=== PATIENT | male | born 1980 | race Caucasian/White ===

== ENCOUNTER 2018-08-18 08:50 | Emergency (ER) | payer OTHER, SELFPAY ==
[2018-08-18 08:59] VITALS: BP 151/94; PULSE 105; RESP 16; TEMP 36.6; O2SAT 98
[2018-08-18 09:00] VITALS: BP 151/94; PULSE 105; PULSE 98; RESP 16; TEMP 36.6; O2SAT 98; BMI 29.0
--- NOTE | 2018-08-18 09:15 | ED.TRAUMA ---
HPI - Trauma General Chief Complaint: Extremity Injury, Upper Stated Complaint: twisted pinky and ring finger in conveyor at work Time Seen by Provider: 08/18/18 09:14 Source: patient Mode of arrival: ambulatory Limitations: no limitations History of Present Illness HPI narrative: This is a 38-year-old male comes to the emergency department with complaint of injury to both hands. Patient states he was at work. He works at [employer]. He was working on a conveyor belt with a wrench when the wrench was caught up with the conveyor belt caught his left finger and pulled his left hand through the rosalba. He states his 4th and 5th fingers with through particularly the 5th. He grabbed a piece of the rubber and hold it with his right hand causing some friction and burning to that hand but that hand did not get hold through the conveyor belt. Patient states he was able to extract his hands. He states they feel very warm. He has quite a bit of pain when he tries to flex his 4th and 5th fingers. Particularly his 5th finger. There is some abrasion to the skin. And some black discoloration likely from the conveyer belt itself. Patient has sensation but states it feels decreased in the 5th finger. He states his tetanus is up-to-date. He denies any other past medical issues. He had a hernia repair on the right inguinal in 2005. He denies any allergies to medications. He denies any other injuries. Related Data Previous Rx's Medication Instructions Recorded tramadol [Ultram] 50 mg PO Q6H PRN #10 tab 08/18/18 Allergies Allergy/AdvReac Type Severity Reaction Status Date / Time No Known Drug Allergies Allergy Verified 08/18/18 09:19 Review of Systems Review of Systems ROS Unobtainable: All systems reviewed & are unremarkable except as noted in HPI and below Constitutional Denies weakness Musculoskeletal Reports as per HPI, Denies deformity, Reports limited range of motion, Reports tingling (decreased sensation 5th finger) and Reports other (pain 4/5th fingers.) Integumentary/Breasts Reports as per HPI, Reports skin pain and Reports wounds Neurologic Denies focal weakness, Reports tingling (decreased sensation 5th finger) and Denies weakness [facility] Surgical History (Updated 08/18/18 @ 09:21 by Adalgisa Garcia DO) H/O inguinal hernia repair (Chronic) Exam Narrative Exam Narrative: GEN: Patient appears in mild distress. HEAD: No evidence of trauma, no raccoon/Calvo sign. NECK: Painless range of motion, trachea midline EYES:EOMI ENT: External inspection normal, trachea is midline, airway is normal and with normal occlusion. RESP: Chest is nontender and has symmetric movement, no ecchymosis, breath sounds are normal no crackles, wheezes or rales CVS: Heart sounds are normal, no murmur noted, No JVD. ABG/GI: Nontender, soft, normal bowel sounds, no distention, no organomegaly. NEURO: Oriented AOx3, neuro is grossly intact, sensation and motor is normal all 4 extremities moving, cranial nerves II through XII are intact, GCS is 15 PSYCH: Normal mood and affect SKIN: see below, warm and dry, no crepitus and without decubitus BACK: No CVA tenderness, no vertebral tenderness, no step-off's, no crepitus EXT: On right hand patient has some very mild abrasions across the palm and fingers with some blackish discoloration that appears likely secondary to a conveyor belt itself and not necrosis or damage. There is some erythema as well. Patient has full range of motion and no bony tenderness to the hand with sensation and cap refill in all fingers. The left hand patient has similar abrasion in the home as well as blackish discoloration which is also consistent with the conveyor belt itself. He does have some abrasion over the finger as well as superficial avulsion the top layer of skin about skilled nursing around the dorsum of the 5th finger small portion the 4th finger. All patient has pain with palpation over those 2 fingers. He is able to flex partially but has pain in the proximal fingers. Patient's ring was on the 4th finger, this was removed by nursing quickly. Patient's cap refill is less than 5 seconds in all 5 fingers. He has sensation in all 5 fingers but states feels decreased in the left. He does have sensation to light touch. normal color and temperature, no pallor or cyanosis of fingers, normal range of motion of extremities with normal tendon exam except for 4/5th fingers on left hand. Patient is able to flex some but is uncomfortable, he is able to fully extend both fingers,2 + pulse bilateral wrists. Initial Vital Signs Initial Vital Signs: Vital Signs Temperature 97.9 F 08/18/18 08:59 Pulse Rate 105 H 08/18/18 08:59 Respiratory Rate 16 08/18/18 08:59 Blood Pressure 151/94 H 08/18/18 08:59 Pulse Oximetry 98 08/18/18 08:59 Scores GCS [place] coma scale eye opening: Spontaneous [place] coma scale verbal response: Orientated [place] coma scale motor response: Obey commands [place] coma scale total score: 15 Course Orders Ordered: Discontinued Medications Hydrocodone Bitart/Acetaminophen ([place] 5/325) 1 tab PO NOW ONE Stop: 08/18/18 09:16 Last Admin: 08/18/18 09:25 Dose: 1 tab Vital Signs - 8 hr 08/18/18 08:59 08/18/18 09:00 08/18/18 10:28 Temperature 97.9 F 97.9 F Pulse Rate 105 H 105 H 68 Pulse Rate [Left Radial] 98 H Respiratory Rate 16 16 12 Blood Pressure 151/94 H 148/65 H Blood Pressure [Right Arm] 151/94 H Pulse Oximetry 98 98 99 MDM - Trauma Imaging Data hand xray left: Radiologist's impression: Jose Preciado 38 M 1980 [place] [address] XRay Report Signed Patient: Jose Preciado [facility]#: [id number] : 1980Acct:[id number] Age/Sex: 38 / MDate of Service: 08/18/18 Loc: ED Accession Number: [id number] Procedure: XR hand LT min 3V Ordering Provider: Adalgisa Garcia D.O. PROCEDURE: XR HAND LT MIN 3V INDICATIONS: pain, especially 5th finger, went thru rosalba/conveyer belt TECHNIQUE: 3 views of the hand(s) acquired. COMPARISON: None. FINDINGS: Bones: No fractures or dislocations. Carpal bones are normally aligned. No suspicious bony lesions. Soft tissues: No suspicious soft tissue calcifications. IMPRESSION: No fracture. No osseous lesion. If symptoms and/or clinical suspicion for pathology persists, further assessment with repeat radiographs (7-10 days) or advanced imaging (e.g. CT, MRI or bone scan) may be helpful. Dictated by: Rosette Guerra MD, PhD on 08/18/2018 at 9:42 Approved by: Rosette Guerra MD, PhD on 08/18/2018 at 9:43 [facility] Narrative Medical decision making narrative: The patient has some mild abrasion friction pelaez on his right hand. On his left hand x-ray does not show any fracture. He has swelling but no signs of compartment syndrome in his fingers or hand. He does have some abrasion/friction pelaez on the left palm and some superficial abrasions with the top layer of skin removed. Discussed basic wound care. At this time I would not start him on antibiotics but would have him use some topical Neosporin type medication to the open areas. Light dressings that are non constrictive. His ring was removed the ring cutter by nursing when he initially arrived to the ER. Patient has a little bit of decreased sensation in the distal finger but can feel light touch on the 5th digit. He also has quite a bit of pain with flexion. Plan for follow-up with Hand or orthopedic surgery. His employer states that they can help set him up with an appointment but was also given a referral through the ER. Discharge Plan Departure Patient Disposition: Home Clinical Impression: Abrasion or friction burn of hand without infection Contusion of finger of left hand Qualifiers: Encounter type: initial encounter Finger: little finger Damage to nail status: without damage Qualified Code(s): S60.052A - Contusion of left little finger without damage to nail, initial encounter Discharge Date/Time: 08/18/18 10:29 Interventions: ED Discharge Assessment Last Done: 08/18/18 10:28 Instructions: How to Take Care of a Burn Activity Restrictions/Additional Instructions: Follow-up with your provider/L and I provider in the next 3-5 days for recheck. You may also take ibuprofen with this medication you may take up to 800 mg every 8 hours as needed. You may also take Tylenol up to 1000 mg every 8 hours as needed. He may take Ultram for breakthrough pain, you may take 1-2 tablets every 6 hours as needed. This medication can make you sleepy so do not drive, perform hazards activities or make any major decisions while taking it. Wound Care: Keep wound(s) clean and dry. Wash daily with soap and water only. Do not use over the counter products (alcohol or peroxide)on the wounds unless instructed by a physician, I would recommend using topical triple antibiotic ointment such as Neosporin to the open area is 2-3 times daily. If wound condition worsens (increased/expanding redness, developing fluid blisters, or worsening pain), either contact your doctor for an urgent re-assessment , or return to the Emergency Department. Return to the Emergency Department for any new or worsening symptoms. Return if fever greater than 100.4 Fahrenheit, increased swelling, increasing pain or worsening symptoms such as increased discharge or spreading redness. and if you are having inability to move, bend your fingers, loss of sensation, pallor or cyanosis, rapidly worsening pain or other new or concerning symptoms. Prescriptions: New tramadol [Ultram] 50 mg tablet 50 mg PO Q6H PRN (Reason: pain) Qty: 10 RF: 0 Referrals: Adama Borjas MD [Physician] - Stand Alone Forms: Work Release Note
[2018-08-18] MEDS: HYDROCODONE/ACET 5/325 TABLET 1 TAB PO (09:25)
--- NOTE | 2018-08-18 09:28 | ED_ITS ---
HPI - Trauma General Chief Complaint: Extremity Injury, Upper Stated Complaint: twisted pinky and ring finger in conveyor at work Time Seen by Provider: 08/18/18 09:14 Source: patient Mode of arrival: ambulatory Limitations: no limitations History of Present Illness HPI narrative: This is a 38-year-old male comes to the emergency department with complaint of injury to both hands. Patient states he was at work. He works at [employer]. He was working on a conveyor belt with a wrench when the wrench was caught up with the conveyor belt caught his left finger and pulled his left hand through the rosalba. He states his 4th and 5th fingers with through particularly the 5th. He grabbed a piece of the rubber and hold it with his right hand causing some friction and burning to that hand but that hand did not get hold through the conveyor belt. Patient states he was able to extract his hands. He states they feel very warm. He has quite a bit of pain when he tries to flex his 4th and 5th fingers. Particularly his 5th finger. There is some abrasion to the skin. And some black discoloration likely from the conveyer belt itself. Patient has sensation but states it feels decreased in the 5th finger. He states his tetanus is up-to-date. He denies any other past medical issues. He had a hernia repair on the right inguinal in 2005. He denies any allergies to medications. He denies any other injuries. Related Data Previous Rx's Medication Instructions Recorded tramadol [Ultram] 50 mg PO Q6H PRN #10 tab 08/18/18 Allergies Allergy/AdvReac Type Severity Reaction Status Date / Time No Known Drug Allergies Allergy Verified 08/18/18 09:19 Review of Systems Review of Systems ROS Unobtainable: All systems reviewed & are unremarkable except as noted in HPI and below Constitutional Denies weakness Musculoskeletal Reports as per HPI, Denies deformity, Reports limited range of motion, Reports tingling (decreased sensation 5th finger) and Reports other (pain 4/5th fingers.) Integumentary/Breasts Reports as per HPI, Reports skin pain and Reports wounds Neurologic Denies focal weakness, Reports tingling (decreased sensation 5th finger) and Denies weakness [facility] Surgical History (Updated 08/18/18 @ 09:21 by Adalgisa Garcia DO) H/O inguinal hernia repair (Chronic) Exam Narrative Exam Narrative: GEN: Patient appears in mild distress. HEAD: No evidence of trauma, no raccoon/Calvo sign. NECK: Painless range of motion, trachea midline EYES:EOMI ENT: External inspection normal, trachea is midline, airway is normal and with normal occlusion. RESP: Chest is nontender and has symmetric movement, no ecchymosis, breath sounds are normal no crackles, wheezes or rales CVS: Heart sounds are normal, no murmur noted, No JVD. ABG/GI: Nontender, soft, normal bowel sounds, no distention, no organomegaly. NEURO: Oriented AOx3, neuro is grossly intact, sensation and motor is normal all 4 extremities moving, cranial nerves II through XII are intact, GCS is 15 PSYCH: Normal mood and affect SKIN: see below, warm and dry, no crepitus and without decubitus BACK: No CVA tenderness, no vertebral tenderness, no step-off's, no crepitus EXT: On right hand patient has some very mild abrasions across the palm and fingers with some blackish discoloration that appears likely secondary to a conveyor belt itself and not necrosis or damage. There is some erythema as well. Patient has full range of motion and no bony tenderness to the hand with sensation and cap refill in all fingers. The left hand patient has similar abrasion in the home as well as blackish discoloration which is also consistent with the conveyor belt itself. He does have some abrasion over the finger as well as superficial avulsion the top layer of skin about long-term around the dorsum of the 5th finger small portion the 4th finger. All patient has pain with palpation over those 2 fingers. He is able to flex partially but has pain in the proximal fingers. Patient's ring was on the 4th finger, this was removed by nursing quickly. Patient's cap refill is less than 5 seconds in all 5 fingers. He has sensation in all 5 fingers but states feels decreased in the left. He does have sensation to light touch. normal color and temperature, no pallor or cyanosis of fingers, normal range of motion of extremities with normal tendon exam except for 4/5th fingers on left hand. Patient is able to flex some but is uncomfortable, he is able to fully extend both fingers,2 + pulse bilateral wrists. Initial Vital Signs Initial Vital Signs: Vital Signs Temperature 97.9 F 08/18/18 08:59 Pulse Rate 105 H 08/18/18 08:59 Respiratory Rate 16 08/18/18 08:59 Blood Pressure 151/94 H 08/18/18 08:59 Pulse Oximetry 98 08/18/18 08:59 Scores GCS [place] coma scale eye opening: Spontaneous [place] coma scale verbal response: Orientated [place] coma scale motor response: Obey commands [place] coma scale total score: 15 Course Orders Ordered: Discontinued Medications Hydrocodone Bitart/Acetaminophen ([place] 5/325) 1 tab PO NOW ONE Stop: 08/18/18 09:16 Last Admin: 08/18/18 09:25 Dose: 1 tab Vital Signs - 8 hr 08/18/18 08:59 08/18/18 09:00 08/18/18 10:28 Temperature 97.9 F 97.9 F Pulse Rate 105 H 105 H 68 Pulse Rate [Left Radial] 98 H Respiratory Rate 16 16 12 Blood Pressure 151/94 H 148/65 H Blood Pressure [Right Arm] 151/94 H Pulse Oximetry 98 98 99 MDM - Trauma Imaging Data hand xray left: Radiologist's impression: Jose Preciado 38 M 1980 [place] [address] XRay Report Signed Patient: Jose Preciado [facility]#: [id number] : 1980Acct:[id number] Age/Sex: 38 / MDate of Service: 08/18/18 Loc: ED Accession Number: [id number] Procedure: XR hand LT min 3V Ordering Provider: Adalgisa Garcia D.O. PROCEDURE: XR HAND LT MIN 3V INDICATIONS: pain, especially 5th finger, went thru rosalba/conveyer belt TECHNIQUE: 3 views of the hand(s) acquired. COMPARISON: None. FINDINGS: Bones: No fractures or dislocations. Carpal bones are normally aligned. No suspicious bony lesions. Soft tissues: No suspicious soft tissue calcifications. IMPRESSION: No fracture. No osseous lesion. If symptoms and/or clinical suspicion for pathology persists, further assessment with repeat radiographs (7-10 days) or advanced imaging (e.g. CT, MRI or bone scan) may be helpful. Dictated by: Rosette Guerra MD, PhD on 08/18/2018 at 9:42 Approved by: Rosette Guerra MD, PhD on 08/18/2018 at 9:43 [facility] Narrative Medical decision making narrative: The patient has some mild abrasion friction pelaez on his right hand. On his left hand x-ray does not show any fracture. He has swelling but no signs of compartment syndrome in his fingers or hand. He does have some abrasion/friction pelaez on the left palm and some superficial abrasions with the top layer of skin removed. Discussed basic wound care. At this time I would not start him on antibiotics but would have him use some topical Neosporin type medication to the open areas. Light dressings that are non constrictive. His ring was removed the ring cutter by nursing when he initially arrived to the ER. Patient has a little bit of decreased sensation in the distal finger but can feel light touch on the 5th digit. He also has quite a bit of pain with flexion. Plan for follow-up with Hand or orthopedic surgery. His employer states that they can help set him up with an appointment but was also given a referral through the ER. Discharge Plan Departure Patient Disposition: Home Clinical Impression: Abrasion or friction burn of hand without infection Contusion of finger of left hand Qualifiers: Encounter type: initial encounter Finger: little finger Damage to nail status: without damage Qualified Code(s): S60.052A - Contusion of left little finger w ithout damage to nail, initial encounter Discharge Date/Time: 08/18/18 10:29 Interventions: ED Discharge Assessment Last Done: 08/18/18 10:28 Instructions: How to Take Care of a Burn Activity Restrictions/Additional Instructions: Follow-up with your provider/L and I provider in the next 3-5 days for recheck. You may also take ibuprofen with this medication you may take up to 800 mg every 8 hours as needed. You may also take Tylenol up to 1000 mg every 8 hours as needed. He may take Ultram for breakthrough pain, you may take 1-2 tablets every 6 hours as needed. This medication can make you sleepy so do not drive, perform hazards activities or make any major decisions while taking it. Wound Care: Keep wound(s) clean and dry. Wash daily with soap and water only. Do not use over the counter products (alcohol or peroxide)on the wounds unless instructed by a physician, I would recommend using topical triple antibiotic ointment such as Neosporin to the open area is 2-3 times daily. If wound condition worsens (increased/expanding redness, developing fluid blisters, or worsening pain), either contact your doctor for an urgent re- assessment , or return to the Emergency Department. Return to the Emergency Department for any new or worsening symptoms. Return if fever greater than 100.4 Fahrenheit, increased swelling, increasing pain or worsening symptoms such as increased discharge or spreading redness. and if you are having inability to move, bend your fingers, loss of sensation, pallor or cyanosis, rapidly worsening pain or other new or concerning symptoms. Prescriptions: New tramadol [Ultram] 50 mg tablet 50 mg PO Q6H PRN (Reason: pain) Qty: 10 RF: 0 Referrals: Adama Borjas MD [Physician] - Stand Alone Forms: Work Release Note
--- NOTE | 2018-08-18 10:03 | PC.NURSE ---
Patient got left hand caught in conveyor belt at work. Pinky and ring finger very swollen, states hand feels like it is burning. Ring cut off ring finger secondary to injury and swelling immediately upon arrival to ER. CMS in tact minimal ability to bend fourth or fifth digit on left hand. Right hand appears superficial abrasion and burning to fingers from stopping the belt.
[2018-08-18 10:28] VITALS: BP 148/65; PULSE 68; RESP 12; O2SAT 99
== END 2018-08-18 10:29 | disposition home or self-care (01) ==
PROVIDERS: Emergency Provider Emergency Medicine; PCP Nurse Practitioner Acute Care
DX: S60.052A Contusion of left little finger without damage to nail, initial encounter (principal); S60.511A Abrasion of right hand, initial encounter; S60.512A Abrasion of left hand, initial encounter; Y99.0 Civilian activity done for income or pay
CPT/HCPCS: 73130; 99282; 99283

== ENCOUNTER 2020-08-15 12:06 | Emergency (ER) | payer OTHER, SELFPAY ==
[2020-08-15 12:13] VITALS: BP 162/86; PULSE 89; RESP 18; TEMP 36.6; O2SAT 98; BMI 29.1
--- NOTE | 2020-08-15 13:04 | ED.BACK ---
HPI - Back Pain/Injury General Chief Complaint: Back Pain/Injury Stated Complaint: Lower Back Pain Time Seen by Provider: 08/15/20 12:42 Source: patient Limitations: no limitations History of Present Illness HPI Narrative: Patient is a 40-year-old male who presents with a midline back pain ongoing for about 5 days. He bent down and picked up something heavy when he felt sudden onset pain in the center of his spine. He has been taking some ibuprofen for it. He feels bilateral radiation around to his abdomen. No changes in bowel or bladder habits although he feels like he might have some diarrhea. No decreased sensation in his lower extremities no numbness or tingling in his lower extremities. It hurts every time he takes a deep breath MD Complaint: back pain Onset (ago): day(s) (5) Duration: constant Location: lumbar spine Severity: moderate Quality: sharp Radiation: abdomen Relieving factors: none Related Data Previous Rx's Medication Instructions Recorded diazepam [Valium] 5 mg PO Q12HR PRN #10 tab 08/15/20 Allergies Allergy/AdvReac Type Severity Reaction Status Date / Time No Known Drug Allergies Allergy Verified 08/15/20 12:16 Review of Systems Review of Systems Narrative: GENERAL: Denies chills, fatigue, malaise, fever, sweats, travel HEENT: Denies sinus pain, ear pain, sore throat, difficulty swallowing, neck pain RESPIRATORY: Denies dyspnea, cough, wheezing, hemoptysis, sputum. CARDIOVASCULAR: Denies chest pain, palpitations, orthopnea, edema GASTROINTESTINAL: Denies nausea, vomiting, abdominal pain, diarrhea, constipation, melena. : Denies dysuria, frequency, incontinence, hematuria, urinary retention, flank pain. MUSCULOSKELETAL: see HPI SKIN: No rash, no erythema, no pruritus NEUROLOGIC: Denies weakness, dizziness, headache, numbness, change in speech, confusion PSYCHIATRIC: No concerning psychosocial issues. 12 point review of systems is negative except for those stated above and HPI Patient History Medical History Healthy adult Surgical History H/O inguinal hernia repair Social History Smoking Status: Former smoker Smoking Status: Former smoker alcohol intake frequency: 0-2 drinks per day Substance Use Type: does not use Exam Initial Vital Signs Initial Vital Signs: Vital Signs Temperature 98 F 08/15/20 12:13 Pulse Rate 89 08/15/20 12:13 Respiratory Rate 18 08/15/20 12:13 Blood Pressure 162/86 H 08/15/20 12:13 Pulse Oximetry 98 08/15/20 12:13 GENERAL: Alert 40-year-old male and in no acute distress. HEENT: Head atraumatic,EOMI, pupils reactive, face symmetric, moist mucous membranes CARDIOVASCULAR: Regular rate and rhythm without murmurs, rubs or gallops. RESPIRATORY: Breath sounds equal bilaterally, no wheezes rales or rhonchi. ABDOMEN: Soft, nontender. Normoactive bowel sounds all 4 quadrants. No guarding or rebound. BACK: Midline tenderness at L4-L5 area no step-offs no CVA tenderness EXTREMITIES: Normal range of motion, no clubbing or edema. Neurovascularly intact NEUROLOGICAL: Alert and oriented x4.Normal gait and speech. Sensation in lower extremities intact SKIN: Warm, dry, no laceration, no petechiae, no rashes or lesions. Course Orders Ordered: Discontinued Medications Ketorolac Tromethamine (Ketorolac 60 Mg/2 Ml Vial) 30 mg IM NOW ONE Stop: 08/15/20 13:03 Last Admin: 08/15/20 13:17 Dose: 30 mg Documented by: TERA Vital Signs Vital signs: Vital Signs - 8 hr 08/15/20 12:13 08/15/20 13:38 Temperature 98 F Pulse Rate 89 89 Respiratory Rate 18 16 Blood Pressure 162/86 H Pulse Oximetry 98 97 MDM - Back Pain/Injury MDM Narrative Medical decision making narrative: At this time patient has had no traumatic injury no need for imaging. Likely muscle strain from bending down and picking up something heavy. Recommend conservative management with pain control and outpatient follow-up. Discharge Plan Departure Patient Disposition: Home Clinical Impression: Strain of lumbar region Qualifiers: Encounter type: initial encounter Qualified Code(s): S39.012A - Strain of muscle, fascia and tendon of lower back, initial encounter Instructions: DI for Back Strain or Sprain Activity Restrictions/Additional Instructions: *You have been diagnosed with back pain *What to do: Light activity and stretching is encouraged no strenuous activity or heavy lifting until healed. Recommend heating pad. If symptoms are persisting you may require as MRI and/or physical therapy *Continue to take medications as directed Ibuprofen 800 mg every 8 hours as needed [id number] pain Valium 5 mg every 12 hours if needed for muscle spasm this can cause drowsiness do not drive or operate heavy machinery *Follow up with your primary care provider in 2-3 days *Return to ER if you should have worsening pain, changes in urine or stool, weakness numbness or tingling of lower extremities or any new, worsening or concerning symptoms Prescriptions: New diazepam [Valium] 5 mg tablet 5 mg PO Q12HR PRN (Reason: muscle spasm) Qty: 10 RF: 0 Referrals: Lucy Billings ARNP [Primary Care Provider] -
[2020-08-15] MEDS: KETOROLAC 60 MG/2 ML VIAL 30 MG IM (13:17)
[2020-08-15 13:38] VITALS: PULSE 89; RESP 16; O2SAT 97
== END 2020-08-15 13:40 | disposition home or self-care (01) ==
PROVIDERS: Emergency Provider Emergency Medicine; PCP Nurse Practitioner Acute Care
DX: S39.012A Strain of muscle, fascia and tendon of lower back, initial encounter (principal); X50.0XXA Overexertion from strenuous movement or load, initial encounter
CPT/HCPCS: 96372; 99283; J1885

== ENCOUNTER 2021-01-30 01:38 | Emergency (ER) | payer OTHER, SELFPAY ==
[2021-01-30] VITALS (7 sets, daily range): BP systolic 109–148; BP diastolic 72–99; PULSE 59–71; RESP 16; TEMP 36.8; O2SAT 94–97; BMI 28.2
[2021-01-30] MEDS: MECLIZINE HCL 12.5 MG TABLET 50 MG PO (03:04)
--- NOTE | 2021-01-30 03:08 | ED_ITS ---
HPI - Dizziness General Chief Complaint: Dizziness Stated Complaint: head spins when he gets up/lays down Time Seen by Provider: 01/30/21 02:49 Source: patient Mode of arrival: Ambulatory Limitations: no limitations History of Present Illness HPI Narrative: Patient is a 40-year-old male who presents with sudden onset of dizziness. He said he woke up this morning he was lying on his stomach and we his head back and and he started feeling dizzy. It has been dizzy off and on mostly if he lays flat on his back the dizziness is worse. He is able to stand up and get going a bit. He has no chest pain palpitations nausea or vomiting. He is unable to sleep tonight. He denies any fever or chills. He has has no prior history of vertigo. No numbness tingling or weakness. No difficulty with ambulation. Related Data Previous Rx's Medication Instructions Recorded diazepam 5 mg tablet (Valium) 5 mg PO Q12HR PRN #10 tab 08/15/20 meclizine 25 mg tablet 25 mg PO TID PRN #20 tab 01/30/21 Allergies Allergy/AdvReac Type Severity Reaction Status Date / Time No Known Drug Allergies Allergy Verified 08/15/20 12:16 Review of Systems Review of Systems Narrative: GENERAL: Denies chills, fatigue, malaise, fever, sweats, travel HEENT: Denies sinus pain, ear pain, sore throat, difficulty swallowing, neck pain RESPIRATORY: Denies dyspnea, cough, wheezing, hemoptysis, sputum. CARDIOVASCULAR: Denies chest pain, palpitations, orthopnea, edema GASTROINTESTINAL: Denies nausea, vomiting, abdominal pain, diarrhea, const ipation, melena. : Denies dysuria, frequency, incontinence, hematuria, urinary retention, flank pain. MUSCULOSKELETAL: Denies weakness, joint pain, or bony pain SKIN: No rash, no erythema, no pruritus NEUROLOGIC:+ dizziness PSYCHIATRIC: No concerning psychosocial issues. 12 point review of systems is negative except for those stated above and HPI Patient History Medical History Healthy adult Surgical History H/O inguinal hernia repair Social History Smoking Status: Former smoker Smoking Status: Former smoker alcohol intake frequency: 0-2 drinks per day Substance Use Type: does not use Exam Initial Vital Signs Initial Vital Signs: Vital Signs Temperature 98.2 F 01/30/21 02:07 Pulse Rate 66 01/30/21 02:07 Pulse Oximetry 96 01/30/21 02:07 GENERAL: Alert 40-year-old male sitting up right eyes initially closed but able to open them HEENT: Head atraumatic,EOMI, pupils reactive, no nystagmus face symmetric, moist mucous membranes CARDIOVASCULAR: Regular rate and rhythm without murmurs, rubs or gallops. RESPIRATORY: Breath sounds equal bilaterally, no wheezes rales or rhonchi. ABDOMEN: Soft, nontender. Normoactive bowel sounds all 4 quadrants. No guarding or rebound. EXTREMITIES: Normal range of motion, no clubbing or edema. Neurovascularly intact NEUROLOGICAL: Alert and oriented x4.Normal gait and speech. Cranial nerves II through XII grossly intact. Good [id number], good [id number], strength equal bilaterally, no dysarthria or aphasia, sensation in tact to soft touch bilaterally, no visual changes, no facial droop SKIN: Warm, dry, no laceration, no petechiae, no rashes or lesions. Scores NIH Stroke Scale Level of Conciousness: Alert, keenly responsive Ask month/age: Answers both questions correctly. Open/close eyes, close hand: Performs both tasks correctly Best gaze horizontal: Normal Visual matias: No visual loss Facial palsy: Normal symetrical movement Left arm drift: No drift for full 10 sec Right arm drift: No drift for full 10 sec Left leg drift: No drift for full 5 sec Right leg drift: No drift for full 5 sec Limb ataxia: Absent Sensory on face/arms/legs: Normal, no sensory loss Best language: No aphasia, normal Dysarthria: Normal Extinction or inattention: No abnormality Total NIH Stroke scale score: 0 Course Orders Ordered: ED Orders 01/30/21 EKG-12 Lead Stat 01/30/21 03:35 Complete Blood Count AUTO DIFF Stat Comprehensive Metabolic Panel Stat Lipase Stat Troponin & CK Cardiac Panel Stat Discontinued Medications Meclizine HCl (Meclizine Hcl 12.5 Mg Tablet) 50 mg PO NOW ONE Stop: 01/30/21 02:11 Last Admin: 01/30/21 03:04 Dose: 50 mg Documented by: TITO Vital Signs Vital signs: Vital Signs - 8 hr 01/30/21 02:07 01/30/21 02:10 01/30/21 02:30 Temperature 98.2 F 98.2 F Pulse Rate 66 71 59 L Respiratory Rate 16 Blood Pressure 148/99 H 123/81 Pulse Oximetry 96 95 94 01/30/21 03:00 01/30/21 03:30 01/30/21 04:00 Temperature Pulse Rate 66 63 60 Respiratory Rate Blood Pressure 130/82 109/72 114/86 Pulse Oximetry 97 96 94 01/30/21 04:30 Temperature Pulse Rate 66 Respiratory Rate Blood Pressure 118/76 Pulse Oximetry 96 MDM - Dizziness Lab Data Result diagrams: 01/30/21 03:35 01/30/21 03:35 Labs: Lab Results 01/30/21 01/30/21 Range/Units 03:35 03:35 WBC 7.6 (4.5-11.0) X10^3/uL RBC 4.88 (4.5-5.9) X10^6/uL Hgb 15.2 (13.5-17.5) g/dL Hct 44.1 (41-53) % MCV 90.4 (80-100) fL MCH 31.2 (26-34) PG MCHC 34.5 (30-36) % RDW 11.8 (11.6-14.8) % Plt Count 232 (150-400) X10^3/uL Neut % (Auto) 47.7 L (50-75) % Lymph % (Auto) 38.0 (25-40) % Tompkins % (Auto) 11.5 (3-14) % Eos % (Auto) 2.2 (2-4) % Baso % (Auto) 0.6 (0-2) % Neut # (Auto) 3600 (2237-6560) /uL Lymph # (Auto) 2900 (7886-5123) /uL Tompkins # (Auto) 900 (0-900) /uL Eos # (Auto) 200 (0-450) /uL Baso # (Auto) 0 (0-100) /uL Sodium 138 (137-145) mmol/L Potassium 4.2 (3.4-5.1) mmol/L Chloride 105 (98-107) mmol/L Carbon Dioxide 26 (22-32) mmol/L BUN 18 (9-20) mg/dL Creatinine 1.00 (0.66-1.25) mg/dL Estimated GFR > 60.0 (>60) mL/min BUN/Creatinine Ratio 18.0 (6-22) Glucose 94 (70-100) mg/dL Calcium 9.5 (8.4-10.2) mg/dL Total Bilirubin 0.7 (0.2-1.3) mg/dL AST 30 (17-59) IU/L ALT 32 (<50) IU/L Alkaline Phosphatase 51 (38-126) U/L Total Creatine Kinase 107 (55-170) U/L CK-MB (CK-2) 0.34 (<2.37) ng/mL CK-MB (CK-2) Rel Index 0.3 L (1.5-5.0) % Troponin I < 0.012 (0.01-0.034) ng/mL Total Protein 7.1 (6.3-8.2) g/dL Albumin 4.2 (3.5-5.0) g/dL Globulin 2.9 (1.7-4.1) g/dL Albumin/Globulin Ratio 1.4 (1.0-2.8) Lipase 194 (23-300) U/L ECG Data Interpretation: Normal sinus rhythm his rate [address] changes but he has noted T-wave inversions in lead 3, V2 and V3 no priors to compare MDM Narrative Medical decision making narrative: Patient had sudden-onset dizziness when he wo ke this morning. It is her repair sternal. He is feeling much better after meclizine. EKG did show some T-wave inversions but he has no chest pain and negative troponin. No previous EKGs to compare. Probable incidental finding. Patient's symptoms are much more consistent with vertigo rather than a posterior stroke. He has a negative NIH stroke scale. He is resting and appears well in the ED. He has no nausea or vomiting. Discharge Plan Departure Patient Disposition: Home Clinical Impression: Benign paroxysmal positional vertigo Qualifiers: Laterality: unspecified laterality Qualified Code(s): H81.10 - Benign paroxysmal vertigo, unspecified ear Instructions: DI for Vertigo Activity Restrictions/Additional Instructions: *You have been diagnosed with vertigo *What to do: At this time symptoms should resolve spontaneously. Increase activity as tolerated. Try to find position of comfort. If this is not im proving he may need ENT evaluation *Continue to take medications as directed Meclizine 25-50 mg every 8 hours if needed for dizziness *Follow up with your primary care provider in 2-3 days *Return to ER if you should have increasing dizziness, persistent nausea or vomiting, numbness, tingling, weakness any new, worsening or concerning symptoms Prescriptions: New meclizine 25 mg tablet 25 mg PO TID PRN (Reason: dizziness) Qty: 20 RF: 0 No Action diazepam [Valium] 5 mg tablet 5 mg PO Q12HR PRN (Reason: muscle spasm) Qty: 10 RF: 0 Referrals: Lucy Billings ARNP [Primary Care Provider] -
[2021-01-30 03:44] LABS: Add Manual Diff / Slide Review NO; Basophils Absolute Auto 0 /uL (0-100); Basophils Percent Auto 0.6 % (0-2); Eosinophils Absolute Auto 200 /uL (0-450); Eosinophils Percent Auto 2.2 % (2-4); Hematocrit 44.1 % (41-53); Hemoglobin 15.2 g/dL (13.5-17.5); Lymphocytes Absolute Auto 2900 /uL (1100-4500); Mean Corpuscular HGB Conc 34.5 % (30-36); Mean Corpuscular Hemoglobin 31.2 PG (26-34); Mean Corpuscular Volume 90.4 fL (80-100); Monocytes Absolute Auto 900 /uL (0-900); Monocytes Percent Auto 11.5 % (3-14); Neutrophils Absolute Auto 3600 /uL (1500-7000); Neutrophils Percent Auto 47.7 % (50-75); Platelet Count 232 X10^3/uL (150-400); Red Blood Cell Count 4.88 X10^6/uL (4.5-5.9); Red Cell Distribution Width 11.8 % (11.6-14.8); White Blood Cell Count 7.6 X10^3/uL (4.5-11.0)
[2021-01-30 03:54] LABS: Alanine Aminotransferase 32 IU/L (<50); Albumin 4.2 g/dL (3.5-5.0); Albumin Globulin Ratio 1.4 (1.0-2.8); Alkaline Phosphatase 51 U/L (38-126); Aspartate Aminotransferase 30 IU/L (17-59); Bilirubin Total 0.7 mg/dL (0.2-1.3); Blood Urea Nitrogen 18 mg/dL (9-20); Calcium 9.5 mg/dL (8.4-10.2); Carbon Dioxide 26 mmol/L (22-32); Chloride 105 mmol/L (98-107); Creatine Kinase 107 U/L (55-170); Estimated Glomerular Filt Rate > 60.0 mL/min (>60); Globulin 2.9 g/dL (1.7-4.1); Glucose 94 mg/dL (70-100); HEMOLYSIS < 15 (0-50); Lipase 194 U/L (23-300); Potassium 4.2 mmol/L (3.4-5.1); Sodium 138 mmol/L (137-145); Total Protein 7.1 g/dL (6.3-8.2)
[2021-01-30 04:05] LABS: Troponin I < 0.012 ng/mL (0.01-0.034)
[2021-01-30 04:09] LABS: CKMB % Relative Index 0.3 % (1.5-5.0); Creatine Kinase MB 0.34 ng/mL (<2.37)
== END 2021-01-30 04:44 | disposition home or self-care (01) ==
PROVIDERS: Emergency Provider Emergency Medicine; PCP Nurse Practitioner Acute Care
DX: H81.10 Benign paroxysmal vertigo, unspecified ear (principal)
CPT/HCPCS: 36415; 80053; 82550; 82553; 83690; 84484; 85025; 93005; 93010; 99284